=== PATIENT | female | born 2000 ===

== ENCOUNTER 2022-04-27 11:11 | Outpatient (CLI) | payer MEDICAID ==
[2022-04-27 12:06] VITALS: BP 111/82
[2022-04-27 13:22] LABS: Mucus,Urine FEW /HPF
[2022-04-27 13:36] LABS: Color,Urine Straw (Yellow)
[2022-04-27] MEDS ORDERED: LACTATED RINGERS 1,000 ML ONE (15:06)
[2022-04-27] MEDS ORDERED: BUTORPHANOL 2 MG/1 ML INJ IV ONE (18:23)
[2022-04-27] MEDS ORDERED: BUTORPHANOL 2 MG/1 ML INJ ONE (18:27)
[2022-04-27] MEDS ORDERED: LACTATED RINGERS 500 ML IV ONE (18:43)
== END 2022-04-27 19:25 | disposition home or self-care (01) ==
LOC: TRG 11:11 → APU 11:13 → TRG 19:25
PROVIDERS: ATTEND Obstetrics & Gynecology Gynecology
DX: O26.893 Other specified pregnancy related conditions, third trimester (principal); R10.30 Lower abdominal pain, unspecified; R10.2 Pelvic and perineal pain; Z3A.36 36 weeks gestation of pregnancy
CPT/HCPCS: 59025; 81001; 96374; J0595; J7120